=== PATIENT | female | born 1955 | race African-American/Black ===

== ENCOUNTER 2018-11-15 02:14 | Emergency (ER) | payer OTHER ==
[~2018-11-15] VITALS: Ht 160 cm; Wt 110.8 kg
[2018-11-15 03:13] VITALS: BP 141/67
== END 2018-11-15 04:26 | disposition home or self-care (01) ==
LOC: ER 02:14
DX: H11.31 Conjunctival hemorrhage, right eye (principal); I10 Essential (primary) hypertension